=== PATIENT | male | born 1960 | race Caucasian/White ===

== ENCOUNTER 2017-06-14 13:19 | Emergency (ER) | payer SELFPAY, OTHER | END 2017-06-14 22:57 | disposition left against medical advice (07) | LOC: E/R 13:19 | DX: Z53.21 Procedure and treatment not carried out due to patient leaving prior to being seen by health care provider (principal) ==

== ENCOUNTER 2017-10-07 11:01 | Day surgery (SDC) | payer OTHER ==
[2017-10-07] MEDS: BUPIVACAINE 0.25% (MPF) 30 ML INJ INJ
[2017-10-07] MEDS: CEFAZOLIN 2 GM/50 ML (PMX) 50 ML IVPB (06:00)
[~2017-10-07 11:01] MED LIST: CEFAZOLIN 1 GM INJ; DEXAMETHASONE 4 MG/ML 1 ML INJ; LIDOCAINE 100 MG SYRINGE; ONDANSETRON 4 MG INJ
[2017-10-07] MEDS ORDERED: METOCLOPRAMIDE 10 MG INJ IV (12:30)
[2017-10-07] MEDS ORDERED: FENTAnyl 50 MCG/ML VIAL IV ×2 (12:30)
[2017-10-07] MEDS ORDERED: LABETALOL HCL 20MG INJ IV (12:30)
[2017-10-07] MEDS ORDERED: KETOROLAC 30 MG INJ IV (12:30)
[2017-10-07] MEDS ORDERED: DIPHENHYDRAMINE 50 MG INJ IV (12:30)
[2017-10-07] MEDS ORDERED: ALBUTEROL 0.083% (NEB) 2.5 MG/3 ML AMP HHN (12:30)
[2017-10-07] MEDS ORDERED: EPHEDrine SULFATE 50 MG/5 ML SYG IV (12:30)
[2017-10-07] MEDS ORDERED: OXYCODONE/ACETAMINOPHEN (5/325) TAB PO ×2 (12:30)
[2017-10-07] MEDS ORDERED: MEPERIDINE 25 MG INJ IV (12:30)
[2017-10-07] MEDS ORDERED: HYDROmorphONE (0.2 MG/ML) 10ML SYG IV ×3 (12:30)
[2017-10-07] MEDS ORDERED: hydrALAzine 20 MG INJ IV (12:30)
[2017-10-07] MEDS: BUPIVACAINE 0.5% (SDV) 30 ML INJ (13:10)
[2017-10-07] MEDS ORDERED: PROPOFOL 20 ML (13:14)
[2017-10-07] MEDS ORDERED: SUGAMMADEX SODIUM 200 MG/2 ML VIAL IV (13:14)
[2017-10-07] MEDS ORDERED: ROCURONIUM 50 MG INJ (13:14)
[2017-10-07] MEDS: ONDANSETRON 4 MG INJ IV (13:46)
[2017-10-07] MEDS: FENTAnyl 50 MCG/ML VIAL IV (13:46)
[2017-10-07] MEDS ORDERED: HYDROCODONE/APAP (5/325) TAB PO (14:00)
== END 2017-10-07 15:15 | disposition home or self-care (01) ==
LOC: SDS 11:01
DX: N43.3 Hydrocele, unspecified (principal)
CPT/HCPCS: 55500; 88302; 88307